=== PATIENT | female | born 1950 | race African-American/Black ===

== ENCOUNTER 2020-08-20 11:26 | Inpatient (IN) | payer MEDICARE, MEDICAID ==
[~2020-08-20] VITALS: Ht 160 cm; Wt 62.6 kg
[2020-08-20 11:59] LABS: BASOPHILS % 1.3 % (0.0-2.0); EOSINOPHILS % 3.2 % (0.0-5.0); HEMATOCRIT. 37.5 % (36.0-48.0); HEMOGLOBIN. 12.5 g/dL (12.0-16.0); LYMPHOCYTES % 8.3 % (20.0-50.0); MEAN CORPUSCULAR VOLUME 95.9 fL (81.0-99.0); MEAN PLATELET VOLUME 8.1 fl (7.4-10.4); MONOCYTES % 9.1 % (2.0-8.0); NEUTROPHILS % 78.1 % (40.0-76.0); PLATELET 200 x1000/uL (130-400); RED BLOOD CELL COUNT 3.91 mill/uL (4.2-5.4)
[2020-08-20 12:03] LABS: CHLORIDE 95 mEq/L (98-107)
[2020-08-20 12:06] LABS: PROTHROMBIN TIME 10.9 sec (9.6-11.0)
[2020-08-20] MEDS ORDERED: CEFTRIAXONE 1 G PREMIX 50 ML IV NR (15:00)
[2020-08-20] MEDS ORDERED: ACETAMINOPHEN 325MG TABLET PO PRN (15:15)
[2020-08-20] MEDS ORDERED: ONDANSETRON HCL 4MG/2ML INJ IV PRN (15:15)
[2020-08-20 17:07] VITALS: BP 146/65
[2020-08-20] MEDS ORDERED: MINO2.5T2 PO ×2 (18:00→23:39)
[2020-08-20] MEDS ORDERED: DOXA2TAB2 PO (18:00)
[2020-08-20] MEDS ORDERED: AMLO10TA80 PO ×2 (18:00→23:39)
[2020-08-20] MEDS ORDERED: SUCR500T PO (18:00)
[2020-08-20] MEDS ORDERED: ATOR20TA65 PO (18:00)
[2020-08-20] MEDS ORDERED: ATEN100T PO ×2 (18:00→23:39)
[2020-08-20 20:00] VITALS: BP 108/48
[2020-08-20 23:57] VITALS: BP 111/48
[2020-08-21 04:00] VITALS: BP 116/56
[2020-08-21 07:30] LABS: BASOPHILS % 1.3 % (0.0-2.0); EOSINOPHILS % 3.9 % (0.0-5.0); HEMATOCRIT. 34.6 % (36.0-48.0); HEMOGLOBIN. 11.2 g/dL (12.0-16.0); LYMPHOCYTES % 17.2 % (20.0-50.0); MEAN CORPUSCULAR VOLUME 98.9 fL (81.0-99.0); MEAN PLATELET VOLUME 8.2 fl (7.4-10.4); MONOCYTES % 13.6 % (2.0-8.0); PLATELET 177 x1000/uL (130-400); RED BLOOD CELL COUNT 3.49 mill/uL (4.2-5.4); RED CELL DISTRIBUTION WIDTH 15.1 % (11.6-14.6)
[2020-08-21 08:00] VITALS: BP 132/47
[2020-08-21 12:00] VITALS: BP 127/47
[2020-08-21] MEDS ORDERED: CEFTRIAXONE 1 G PREMIX 50 ML IV SCH (15:00)
[2020-08-21 16:00] VITALS: BP_SYST 141; BP_SYST 146; BP_DIAS 71; BP_DIAS 80
[2020-08-21] MEDS: CEFTRIAXONE 1,000 MG in DEXTROSE 5% WATER 50 ML IV SCH (16:43)
[2020-08-21 20:00] VITALS: BP_SYST 126; BP_SYST 140; BP_SYST 143; BP_DIAS 54; BP_DIAS 70; BP_DIAS 80
[2020-08-22] VITALS: BP 126/54
[2020-08-22 04:00] VITALS: BP 132/58
[2020-08-22 08:00] VITALS: BP_SYST 118; BP_SYST 133; BP_SYST 139; BP_DIAS 55; BP_DIAS 56; BP_DIAS 61
[2020-08-22 12:00] VITALS: BP_SYST 142; BP_SYST 143; BP_DIAS 73; BP_DIAS 75; BP_DIAS 82
[2020-08-22 16:00] VITALS: BP_SYST 104; BP_SYST 149; BP_SYST 163; BP_DIAS 75; BP_DIAS 76; BP_DIAS 86
[2020-08-22] MEDS: CEFTRIAXONE 1,000 MG in DEXTROSE 5% WATER 50 ML IV SCH (16:33)
[2020-08-22] MEDS ORDERED: HEPARIN SODIUM 1,000 UNIT/1ML VIAL IV NR (19:30)
[2020-08-22 20:00] VITALS: BP_SYST 115; BP_SYST 118; BP_DIAS 58; BP_DIAS 59
[2020-08-23] VITALS: BP_SYST 119; BP_SYST 122; BP_SYST 125; BP_DIAS 65; BP_DIAS 67; BP_DIAS 75
== END 2020-08-23 09:30 | disposition home or self-care (01) | DRG 70 ==
LOC: ER 11:26 → EDBEDREQ 13:30 → EDBEDREQTM 13:30 → 8WST 14:36 → EDBEDREQTM 14:39 → EDBEDREQ 14:39 → ENRESERV 15:11
PROVIDERS: ADMIT Internal Medicine; ATTEND Internal Medicine
PROC: 02HV33Z Insertion of Infusion Device into Superior Vena Cava, Percutaneous Approach (ICD-10-PCS; principal; 2020-08-20)
PROC: 5A1D70Z Performance of Urinary Filtration, Intermittent, Less than 6 Hours Per Day (ICD-10-PCS; 2020-08-22)
DX: G93.41 Metabolic encephalopathy (principal); N18.6 End stage renal disease; E87.1 Hypo-osmolality and hyponatremia; I50.32 Chronic diastolic (congestive) heart failure; I13.2 Hypertensive heart and chronic kidney disease with heart failure and with stage 5 chronic kidney disease, or end stage renal disease; G90.8 Other disorders of autonomic nervous system; E87.8 Other disorders of electrolyte and fluid balance, not elsewhere classified; E78.5 Hyperlipidemia, unspecified; I95.3 Hypotension of hemodialysis; Z99.2 Dependence on renal dialysis
CPT/HCPCS: 36415; 71045; 80048; 80053; 82962; 83605; 83880; 84145; 84484; 85025; 93005; 93306; 97162; 99285; J0696; J1644; J7060

== ENCOUNTER 2020-11-25 19:18 | Inpatient (IN) | payer MEDICARE, MEDICAID ==
[~2020-11-25] VITALS: Ht 152.4 cm; Wt 64.9 kg
[~2020-11-25 19:18] MED LIST: ATEN100T PO; ATOR20TA65 PO; DOXA2TAB2 PO; SUCR500T PO
[2020-11-25 21:04] LABS: HEMATOCRIT. 31.9 % (36.0-48.0); HEMOGLOBIN. 10.3 g/dL (12.0-16.0); MEAN CORPUSCULAR HEMOGLOBIN 30.3 pg (28.0-32.0); MEAN CORPUSCULAR VOLUME 93.7 fL (81.0-99.0); MEAN PLATELET VOLUME 8.3 fl (7.4-10.4); PLATELET 201 x1000/uL (130-400); RED CELL DISTRIBUTION WIDTH 15.4 % (11.6-14.6)
[2020-11-25 21:10] LABS: CHLORIDE 90 mEq/L (98-107)
[2020-11-25 21:25] LABS: PLATELET ESTIMATE NORMAL
[2020-11-25] MEDS ORDERED: ALBUTEROL 6.7GM HFA INHALER ORI ONE (21:30)
[2020-11-25] MEDS ORDERED: VANCOMYCIN 1 G PREMIX 200 ML IV ONE (21:30)
[2020-11-25] MEDS ORDERED: PIPERACILLIN/TAZ 3.375G PREMIX 50 ML IV ONE (21:30)
[2020-11-25] MEDS ORDERED: SODIUM POLYSTYRENE SULFONATE 15 G/60 ML BOT PO ONE (21:30)
[2020-11-25] MEDS ORDERED: SODIUM BICARBONATE 8.4% 1 MEQ/ML 50ML SYR IV ONE (21:30)
[2020-11-25] MEDS ORDERED: DEXTROSE 50% WATER 50ML SYRINGE IV ONE (21:45)
[2020-11-25] MEDS ORDERED: INSULIN REGULAR (HUMULIN R) 300UNITS/3ML VIAL IV ONE (21:45)
[2020-11-26] MEDS ORDERED: PIPERACILLIN/TAZOBACTAM 3.375 G in DEXT 5% WATER 100 ML IV SCH (07:45)
[2020-11-26] MEDS ORDERED: ONDANSETRON HCL 4MG/2ML INJ IV PRN (07:45)
[2020-11-26] MEDS ORDERED: PIPERACILLIN/TAZOBACTAM 2.25 G in DEXTROSE 5% WATER 50 ML IV SCH (12:00)
[2020-11-26] MEDS: ENOXAPARIN 30MG/0.3ML SYR SUBCUT SCH (12:42)
[2020-11-27] MEDS: ACETAMINOPHEN 325MG TABLET PO PRN ×3 (00:03→14:22)
[2020-11-27 02:00] VITALS: BP 115/57
[2020-11-27 04:00] VITALS: BP 125/55
[2020-11-27] MEDS: PIPERACILLIN/TAZOBACTAM 2.25 G in DEXTROSE 5% WATER 50 ML IV SCH (04:22)
[2020-11-27 08:00] VITALS: BP 134/42
[2020-11-27] MEDS: ENOXAPARIN 30MG/0.3ML SYR SUBCUT SCH (09:35)
[2020-11-27 12:00] VITALS: BP 140/68
[2020-11-27 16:00] VITALS: BP 97/51
[2020-11-27] MEDS ORDERED: DEXTROSE 50% WATER 50ML SYRINGE IV PRN (18:15)
[2020-11-27 20:00] VITALS: BP 120/74
[2020-11-27] MEDS: BLOOD SUGAR DIAGNOSTIC STRIP TEST SCH (21:00)
[2020-11-28] VITALS: BP 109/92
[2020-11-28] MEDS: PIPERACILLIN/TAZOBACTAM 2.25 G in DEXTROSE 5% WATER 50 ML IV SCH ×3 (00:31→22:33)
[2020-11-28] MEDS: ACETAMINOPHEN 325MG TABLET PO PRN ×3 (00:31→22:32)
[2020-11-28] MEDS: INSULIN LISPRO 100 UNITS/ML SUBCUT SCH ×5 (00:52→21:00)
[2020-11-28 04:00] VITALS: BP 97/46
[2020-11-28] MEDS: BLOOD SUGAR DIAGNOSTIC STRIP TEST SCH ×4 (06:42→21:00)
[2020-11-28 08:00] VITALS: BP 123/59
[2020-11-28] MEDS: ENOXAPARIN 30MG/0.3ML SYR SUBCUT SCH (08:32)
[2020-11-28 12:53] VITALS: BP 116/51
[2020-11-28 16:59] VITALS: BP 139/58
[2020-11-28 18:12] LABS: HEMATOCRIT. 28.3 % (36.0-48.0); HEMOGLOBIN. 9.6 g/dL (12.0-16.0); MEAN CORPUSCULAR HEMOGLOBIN 31.2 pg (28.0-32.0); MEAN CORPUSCULAR VOLUME 92.4 fL (81.0-99.0); MEAN PLATELET VOLUME 8.3 fl (7.4-10.4); PLATELET 183 x1000/uL (130-400); RED BLOOD CELL COUNT 3.06 mill/uL (4.2-5.4); RED CELL DISTRIBUTION WIDTH 14.7 % (11.6-14.6)
[2020-11-28 18:39] LABS: PLATELET ESTIMATE NORMAL
[2020-11-28 20:00] VITALS: BP 186/82
[2020-11-29] VITALS: BP 128/80
[2020-11-29 04:00] VITALS: BP 158/57
[2020-11-29] MEDS: ACETAMINOPHEN 325MG TABLET PO PRN (06:01)
[2020-11-29] MEDS: INSULIN LISPRO 100 UNITS/ML SUBCUT SCH ×4 (07:40→21:00)
[2020-11-29 08:00] VITALS: BP 119/62
[2020-11-29] MEDS: BLOOD SUGAR DIAGNOSTIC STRIP TEST SCH ×4 (08:08→21:36)
[2020-11-29] MEDS: ENOXAPARIN 30MG/0.3ML SYR SUBCUT SCH (10:10)
[2020-11-29] MEDS: PIPERACILLIN/TAZOBACTAM 2.25 G in DEXTROSE 5% WATER 50 ML IV SCH ×2 (10:10→21:00)
[2020-11-29 12:00] VITALS: BP 103/45
[2020-11-29 16:00] VITALS: BP 105/50
[2020-11-29 17:39] LABS: BASOPHILS % 0.7 % (0.0-2.0); EOSINOPHILS % 1.4 % (0.0-5.0); HEMOGLOBIN. 10.3 g/dL (12.0-16.0); LYMPHOCYTES % 7.5 % (20.0-50.0); MEAN CORPUSCULAR HEMOGLOBIN 30.9 pg (28.0-32.0); MEAN CORPUSCULAR VOLUME 96.2 fL (81.0-99.0); MEAN PLATELET VOLUME 8.6 fl (7.4-10.4); NEUTROPHILS % 82.4 % (40.0-76.0); PLATELET 147 x1000/uL (130-400); RED BLOOD CELL COUNT 3.33 mill/uL (4.2-5.4); RED CELL DISTRIBUTION WIDTH 15.4 % (11.6-14.6)
[2020-11-29 20:00] VITALS: BP 134/65
[2020-11-30] VITALS: BP 139/80
[2020-11-30 04:00] VITALS: BP 138/66
[2020-11-30] MEDS: BLOOD SUGAR DIAGNOSTIC STRIP TEST SCH ×4 (06:34→21:00)
[2020-11-30] MEDS: INSULIN LISPRO 100 UNITS/ML SUBCUT SCH ×4 (06:35→21:00)
[2020-11-30 08:00] VITALS: BP 135/65
[2020-11-30] MEDS: ENOXAPARIN 30MG/0.3ML SYR SUBCUT SCH (09:53)
[2020-11-30] MEDS: PIPERACILLIN/TAZOBACTAM 2.25 G in DEXTROSE 5% WATER 50 ML IV SCH ×2 (10:04→22:23)
[2020-11-30] MEDS ORDERED: POTASSIUM CHLORIDE 20MEQ TABLET SR PO SCH (13:00)
[2020-11-30 20:00] VITALS: BP 136/89
[2020-12-01] VITALS: BP 128/60
[2020-12-01 04:00] VITALS: BP 139/62
[2020-12-01 08:00] VITALS: BP 115/56
[2020-12-01] MEDS: ENOXAPARIN 30MG/0.3ML SYR SUBCUT SCH (09:38)
[2020-12-01] MEDS: PIPERACILLIN/TAZOBACTAM 2.25 G in DEXTROSE 5% WATER 50 ML IV SCH (09:38)
[2020-12-01] MEDS: INSULIN LISPRO 100 UNITS/ML SUBCUT SCH ×3 (11:53→21:00)
[2020-12-01] MEDS: BLOOD SUGAR DIAGNOSTIC STRIP TEST SCH ×3 (11:53→21:00)
[2020-12-01 12:00] VITALS: BP 140/92
[2020-12-01 16:00] VITALS: BP 138/60
[2020-12-01 20:00] VITALS: BP 152/63
[2020-12-02] MEDS: INSULIN LISPRO 100 UNITS/ML SUBCUT SCH ×4 (07:50→21:00)
[2020-12-02] MEDS: BLOOD SUGAR DIAGNOSTIC STRIP TEST SCH ×4 (07:51→21:16)
[2020-12-02 08:56] VITALS: BP 148/60
[2020-12-02] MEDS: ENOXAPARIN 30MG/0.3ML SYR SUBCUT SCH (09:45)
[2020-12-02] MEDS: ACETAMINOPHEN 325MG TABLET PO PRN (12:04)
[2020-12-02 20:00] VITALS: BP 141/66
[2020-12-03] MEDS: BLOOD SUGAR DIAGNOSTIC STRIP TEST SCH ×2 (06:37→12:09)
[2020-12-03] MEDS: INSULIN LISPRO 100 UNITS/ML SUBCUT SCH ×2 (07:50→12:09)
[2020-12-03 08:00] VITALS: BP 171/71
[2020-12-03] MEDS: ENOXAPARIN 30MG/0.3ML SYR SUBCUT SCH (09:48)
[2020-12-03 14:36] VITALS: BP 151/71
== END 2020-12-03 16:00 | disposition home health service (06) | DRG 871 ==
LOC: ER 19:18 → ENRESERV 11-26 21:24 → 8WST 11-27 01:56 → 6WST 12-01 23:54
PROVIDERS: ADMIT Internal Medicine; ATTEND Internal Medicine
PROC: 5A1D70Z Performance of Urinary Filtration, Intermittent, Less than 6 Hours Per Day (ICD-10-PCS; principal; 2020-11-26)
DX: A41.89 Other specified sepsis (principal); U07.1 COVID-19; J96.01 Acute respiratory failure with hypoxia; N18.6 End stage renal disease; J12.82 Pneumonia due to coronavirus disease 2019; G92 Toxic encephalopathy; E87.2 Acidosis; E87.1 Hypo-osmolality and hyponatremia; E44.0 Moderate protein-calorie malnutrition; I12.0 Hypertensive chronic kidney disease with stage 5 chronic kidney disease or end stage renal disease; E87.8 Other disorders of electrolyte and fluid balance, not elsewhere classified; E87.5 Hyperkalemia; E78.5 Hyperlipidemia, unspecified; D64.9 Anemia, unspecified; R77.8 Other specified abnormalities of plasma proteins; E11.22 Type 2 diabetes mellitus with diabetic chronic kidney disease; Z68.27 Body mass index [BMI] 27.0-27.9, adult; Z99.2 Dependence on renal dialysis; Z79.899 Other long term (current) drug therapy
CPT/HCPCS: 36415; 71045; 80048; 80053; 82140; 82728; 82962; 83605; 83615; 83880; 84145; 84484; 85025; 85379; 86140; 87635; 93005; 99285; J1650; J1815; J2543; J3370; J3490; J7060

== ENCOUNTER 2021-06-24 12:02 | Emergency (ER) | payer MEDICARE, MEDICAID ==
[~2021-06-24] VITALS: Ht 160 cm; Wt 63.0 kg
[2021-06-24 13:04] LABS: HEMATOCRIT. 34.7 % (36.0-48.0); HEMOGLOBIN. 11.6 g/dL (12.0-16.0); MEAN CORPUSCULAR HEMOGLOBIN 32.3 pg (28.0-32.0); MEAN CORPUSCULAR VOLUME 97.1 fL (81.0-99.0); MEAN PLATELET VOLUME 7.6 fl (7.4-10.4); PLATELET 269 x1000/uL (130-400); RED BLOOD CELL COUNT 3.58 mill/uL (4.2-5.4); RED CELL DISTRIBUTION WIDTH 16.4 % (11.6-14.6)
[2021-06-24 13:18] LABS: CHLORIDE 99 mEq/L (98-107)
[2021-06-24 14:01] VITALS: BP 164/74
[2021-06-24 14:19] LABS: PLATELET ESTIMATE NORMAL
== END 2021-06-24 14:14 | disposition home or self-care (01) ==
LOC: ER 12:02
DX: R55 Syncope and collapse (principal); I12.0 Hypertensive chronic kidney disease with stage 5 chronic kidney disease or end stage renal disease; N18.6 End stage renal disease; Z99.2 Dependence on renal dialysis; Z79.899 Other long term (current) drug therapy
CPT/HCPCS: 36415; 71045; 80053; 85025; 99283; 99284

== ENCOUNTER 2021-09-21 12:10 | Emergency (ER) | payer MEDICARE, MEDICAID ==
[~2021-09-21] VITALS: Ht 167.6 cm; Wt 73.0 kg
[2021-09-21 14:02] LABS: BASOPHILS % 1.1 % (0.0-2.0); EOSINOPHILS % 2.2 % (0.0-5.0); HEMATOCRIT. 37.1 % (36.0-48.0); HEMOGLOBIN. 12.3 g/dL (12.0-16.0); LYMPHOCYTES % 7.7 % (20.0-50.0); MEAN CORPUSCULAR HEMOGLOBIN 29.9 pg (28.0-32.0); MEAN CORPUSCULAR VOLUME 90.3 fL (81.0-99.0); MEAN PLATELET VOLUME 7.7 fl (7.4-10.4); MONOCYTES % 6.8 % (2.0-8.0); NEUTROPHILS % 82.2 % (40.0-76.0); PLATELET 291 x1000/uL (130-400); RED BLOOD CELL COUNT 4.11 mill/uL (4.2-5.4); RED CELL DISTRIBUTION WIDTH 15.8 % (11.6-14.6)
[2021-09-21 14:06] LABS: CHLORIDE 96 mEq/L (98-107)
[2021-09-21 14:52] VITALS: BP 127/75
== END 2021-09-21 14:55 | disposition home or self-care (01) ==
LOC: ER 12:10
DX: R55 Syncope and collapse (principal); I95.3 Hypotension of hemodialysis; E87.1 Hypo-osmolality and hyponatremia; E87.8 Other disorders of electrolyte and fluid balance, not elsewhere classified; I12.0 Hypertensive chronic kidney disease with stage 5 chronic kidney disease or end stage renal disease; N18.6 End stage renal disease; E11.22 Type 2 diabetes mellitus with diabetic chronic kidney disease; Z99.2 Dependence on renal dialysis; Z79.899 Other long term (current) drug therapy
CPT/HCPCS: 36415; 80053; 84484; 85025; 93005; 99283

== ENCOUNTER 2022-03-23 07:19 | Inpatient (IN) | payer MEDICARE, MEDICAID ==
[~2022-03-23] VITALS: Ht 160 cm; Wt 67.1 kg
[~2022-03-23 07:19] MED LIST changes: +AMLO10TA80 MT; +MINO2.5T2 MT; +PANT40TA51 MT; +SUCR1TAB30 MT
[2022-03-23] MEDS ORDERED: ASPIRIN 81MG TABLET PO ONE (07:30)
[2022-03-23 08:16] LABS: HEMATOCRIT. 27.3 % (36.0-48.0); HEMOGLOBIN. 8.8 g/dL (12.0-16.0); MEAN CORPUSCULAR VOLUME 93.4 fL (81.0-99.0); MEAN PLATELET VOLUME 7.8 fl (7.4-10.4); PLATELET 333 x1000/uL (130-400); RED BLOOD CELL COUNT 2.92 mill/uL (4.2-5.4); RED CELL DISTRIBUTION WIDTH 16.8 % (11.6-14.6)
[2022-03-23 08:28] LABS: CHLORIDE 102 mEq/L (98-107)
[2022-03-23] MEDS ORDERED: ATENOLOL 100 MG TABLET PO ONE (08:30)
[2022-03-23] MEDS ORDERED: AMLODIPINE 10MG TABLET PO ONE (08:30)
[2022-03-23 08:39] LABS: PLATELET ESTIMATE NORMAL
[2022-03-23] MEDS ORDERED: ATENOLOL 50 MG TABLET PO ONE (08:45)
[2022-03-23] MEDS ORDERED: ASPIRIN 81MG TABLET PO SCH (08:45)
[2022-03-23] MEDS ORDERED: CLINDAMYCIN 600 MG in DEXTROSE 5% WATER 50 ML IV ONE (08:45)
[2022-03-23] MEDS ORDERED: CEFTRIAXONE 1 G PREMIX 50 ML IV ONE (08:45)
[2022-03-23] MEDS: CLINDAMYCIN 600 MG PREMIX 50 ML IV NR ×2 (10:37→11:01)
[2022-03-23] MEDS ORDERED: CEFTRIAXONE 1 G PREMIX 50 ML IV SCH (11:00)
[2022-03-23] MEDS ORDERED: ONDANSETRON HCL 4MG/2ML INJ IV PRN (11:00)
[2022-03-23] MEDS ORDERED: IPRATROPIUM/ALBUTEROL 0.5-3(2.5)MG/3ML NEB HHN PRN (11:00)
[2022-03-23 11:47] VITALS: BP 165/71
[2022-03-23] MEDS ORDERED: AZITHROMYCIN 500 MG in DEXT 5% WATER 250 ML IV SCH (12:45)
[2022-03-23] MEDS: LOSARTAN POTASSIUM 100 MG TABLET PO SCH (13:41)
[2022-03-23 13:44] LABS: HEPATITIS B SURFACE ANTIGEN NEGATIVE
[2022-03-23 16:00] VITALS: BP 150/69
[2022-03-23 20:00] VITALS: BP 186/92
[2022-03-23] MEDS: AZITHROMYCIN 500 MG in DEXT 5% WATER 250 ML IV SCH (21:36)
[2022-03-23] MEDS: CLONIDINE 0.1MG TABLET PO PRN (21:37)
[2022-03-23] MEDS: EPOETIN ALFA-EPBX 10,000 UNIT/ML VIAL SUBCUT SCH (21:37)
[2022-03-24] VITALS: BP 123/78
[2022-03-24 04:00] VITALS: BP 149/62
[2022-03-24 08:00] VITALS: BP 162/66
[2022-03-24] MEDS: LOSARTAN POTASSIUM 100 MG TABLET PO SCH (09:12)
[2022-03-24] MEDS: CEFTRIAXONE 1,000 MG in DEXTROSE 5% WATER 50 ML IV SCH (09:45)
[2022-03-24 12:00] VITALS: BP 164/79
[2022-03-24 16:00] VITALS: BP 148/79
[2022-03-24 18:42] LABS: BASOPHILS % 1.1 % (0.0-2.0); EOSINOPHILS % 3.7 % (0.0-5.0); HEMATOCRIT. 26.9 % (36.0-48.0); HEMOGLOBIN. 8.7 g/dL (12.0-16.0); LYMPHOCYTES % 11.9 % (20.0-50.0); MEAN CORPUSCULAR HEMOGLOBIN 30.3 pg (28.0-32.0); MEAN CORPUSCULAR VOLUME 93.9 fL (81.0-99.0); MEAN PLATELET VOLUME 8.1 fl (7.4-10.4); MONOCYTES % 8.8 % (2.0-8.0); NEUTROPHILS % 74.5 % (40.0-76.0); PLATELET 285 x1000/uL (130-400); RED BLOOD CELL COUNT 2.87 mill/uL (4.2-5.4); RED CELL DISTRIBUTION WIDTH 16.9 % (11.6-14.6)
[2022-03-24 20:00] VITALS: BP 146/49
[2022-03-24] MEDS: IPRATROPIUM/ALBUTEROL 0.5-3(2.5)MG/3ML NEB HHN SCH (21:39)
[2022-03-24] MEDS: AZITHROMYCIN 500 MG in DEXT 5% WATER 250 ML IV SCH (23:00)
[2022-03-25] VITALS: BP 162/71
[2022-03-25] MEDS: CLONIDINE 0.1MG TABLET PO PRN ×2 (00:38→20:19)
[2022-03-25] MEDS: IPRATROPIUM/ALBUTEROL 0.5-3(2.5)MG/3ML NEB HHN SCH ×4 (01:28→18:00)
[2022-03-25 04:00] VITALS: BP 129/64
[2022-03-25 08:00] VITALS: BP 136/64
[2022-03-25] MEDS: CEFTRIAXONE 1,000 MG in DEXTROSE 5% WATER 50 ML IV SCH (08:06)
[2022-03-25] MEDS: LOSARTAN POTASSIUM 100 MG TABLET PO SCH (08:18)
[2022-03-25] MEDS ORDERED: LEVO250T58 MT (11:23)
[2022-03-25 12:00] VITALS: BP 155/66
[2022-03-25 16:00] VITALS: BP 153/62
[2022-03-25 20:00] VITALS: BP 191/72
[2022-03-25] MEDS ORDERED: AZITHROMYCIN 500 MG TABLET PO SCH (21:00)
[2022-03-25] MEDS: EPOETIN ALFA-EPBX 10,000 UNIT/ML VIAL SUBCUT SCH (21:44)
[2022-03-26] VITALS: BP 137/53
[2022-03-26 04:00] VITALS: BP 162/68
[2022-03-26] MEDS: CLONIDINE 0.1MG TABLET PO PRN (05:44)
[2022-03-26 07:51] VITALS: BP 143/71
[2022-03-26] MEDS: IPRATROPIUM/ALBUTEROL 0.5-3(2.5)MG/3ML NEB HHN SCH ×2 (08:19)
[2022-03-26] MEDS: LOSARTAN POTASSIUM 100 MG TABLET PO SCH (08:33)
[2022-03-26] MEDS: CEFTRIAXONE 1,000 MG in DEXTROSE 5% WATER 50 ML IV SCH (08:34)
[2022-03-26 11:05] VITALS: BP 115/63
[2022-03-26 12:00] VITALS: BP 150/63
== END 2022-03-26 14:35 | disposition home or self-care (01) | DRG 871 ==
LOC: ER 07:19 → EDBEDREQTM 09:02 → EDBEDREQ 09:02 → 7EST 10:04 → EDBEDREQTM 10:08 → EDBEDREQ 10:08 → ENRESERV 10:41
PROVIDERS: ADMIT Internal Medicine; ATTEND Internal Medicine
PROC: 5A1D70Z Performance of Urinary Filtration, Intermittent, Less than 6 Hours Per Day (ICD-10-PCS; 2022-03-23)
PROC: 5A1D70Z Performance of Urinary Filtration, Intermittent, Less than 6 Hours Per Day (ICD-10-PCS; 2022-03-24)
PROC: 5A1D70Z Performance of Urinary Filtration, Intermittent, Less than 6 Hours Per Day (ICD-10-PCS; principal; 2022-03-26)
DX: A41.9 Sepsis, unspecified organism (principal); J18.9 Pneumonia, unspecified organism; J96.00 Acute respiratory failure, unspecified whether with hypoxia or hypercapnia; N18.6 End stage renal disease; I50.33 Acute on chronic diastolic (congestive) heart failure; I13.2 Hypertensive heart and chronic kidney disease with heart failure and with stage 5 chronic kidney disease, or end stage renal disease; E11.22 Type 2 diabetes mellitus with diabetic chronic kidney disease; E78.5 Hyperlipidemia, unspecified; D63.8 Anemia in other chronic diseases classified elsewhere; R79.89 Other specified abnormal findings of blood chemistry; Z20.822 Contact with and (suspected) exposure to COVID-19; Z79.899 Other long term (current) drug therapy; Z99.2 Dependence on renal dialysis; Z86.16 Personal history of COVID-19
CPT/HCPCS: 36415; 71045; 80048; 80053; 83880; 84145; 84484; 85025; 86705; 86709; 86803; 87340; 87426; 93005; 94640; 99285; J0456; J0696; J0885; J3490; J7060

== ENCOUNTER 2022-10-29 17:59 | Inpatient (IN) | payer MEDICARE, MEDICAID ==
[~2022-10-29] VITALS: Ht 157.5 cm; Wt 61.2 kg
[~2022-10-29 17:59] MED LIST changes: +LEVO250T74 MT; -SUCR1TAB30 MT; -SUCR500T PO
[2022-10-29 20:33] LABS: HEMATOCRIT. 29.4 % (36.0-48.0); HEMOGLOBIN. 10.1 g/dL (12.0-16.0); MEAN CORPUSCULAR VOLUME 90.1 fL (81.0-99.0); PLATELET 267 x1000/uL (130-400); RED BLOOD CELL COUNT 3.26 mill/uL (4.2-5.4); RED CELL DISTRIBUTION WIDTH 14.6 % (11.6-14.6)
[2022-10-29 21:27] LABS: CHLORIDE 95 mEq/L (98-107)
[2022-10-29 23:05] LABS: PLATELET ESTIMATE NORMAL
[2022-10-30 03:23] VITALS: BP 158/65
[2022-10-30] MEDS: PANTOPRAZOLE 40MG DR TABLET PO SCH (05:57)
[2022-10-30 08:00] VITALS: BP 145/60
[2022-10-30] MEDS ORDERED: ATENOLOL 100 MG TABLET PO SCH (09:00)
[2022-10-30] MEDS: MINOXIDIL 2.5MG TABLET PO SCH ×2 (09:27→21:42)
[2022-10-30] MEDS: AMLODIPINE 10MG TABLET PO SCH (09:27)
[2022-10-30] MEDS ORDERED: CEFTRIAXONE 1 G PREMIX 50 ML IV SCH (10:30)
[2022-10-30 12:00] VITALS: BP 156/64
[2022-10-30] MEDS: AZITHROMYCIN 500 MG TABLET PO SCH (13:14)
[2022-10-30] MEDS: ATENOLOL 50 MG TABLET PO SCH (13:17)
[2022-10-30] MEDS: CEFTRIAXONE 1,000 MG in DEXTROSE 5% WATER 50 ML IV SCH (13:17)
[2022-10-30 16:00] VITALS: BP 131/56
[2022-10-30 18:41] LABS: HEPATITIS B SURFACE ANTIGEN NEGATIVE
[2022-10-30 20:00] VITALS: BP 124/55
[2022-10-30] MEDS: ATORVASTATIN CALCIUM 20MG TABLET PO SCH (21:43)
[2022-10-30] MEDS: DOXAZOSIN MESYLATE 2MG TABLET PO SCH (21:44)
[2022-10-31] VITALS (13 sets, daily range): BP systolic 105–134; BP diastolic 45–64
[2022-10-31] MEDS: PANTOPRAZOLE 40MG DR TABLET PO SCH (06:12)
[2022-10-31 06:29] LABS: BASOPHILS % 1.4 % (0.0-2.0); HEMATOCRIT. 22.6 % (36.0-48.0); HEMOGLOBIN. 7.7 g/dL (12.0-16.0); MEAN CORPUSCULAR HEMOGLOBIN 30.3 pg (28.0-32.0); MEAN PLATELET VOLUME 8.4 fl (7.4-10.4); MONOCYTES % 14.1 % (2.0-8.0); NEUTROPHILS % 70.5 % (40.0-76.0); PLATELET 176 x1000/uL (130-400); RED BLOOD CELL COUNT 2.55 mill/uL (4.2-5.4)
[2022-10-31] MEDS: MINOXIDIL 2.5MG TABLET PO SCH ×2 (09:00→21:00)
[2022-10-31] MEDS: ATENOLOL 50 MG TABLET PO SCH (09:00)
[2022-10-31] MEDS: AMLODIPINE 10MG TABLET PO SCH (09:00)
[2022-10-31] MEDS: AZITHROMYCIN 500 MG TABLET PO SCH (10:00)
[2022-10-31] MEDS: CEFTRIAXONE 1,000 MG in DEXTROSE 5% WATER 50 ML IV SCH (12:27)
[2022-10-31] MEDS: ATORVASTATIN CALCIUM 20MG TABLET PO SCH (20:58)
[2022-10-31] MEDS ORDERED: EPOETIN ALFA-EPBX 4,000 UNIT/ML VIAL SUBCUT SCH (21:00)
[2022-10-31] MEDS: DOXAZOSIN MESYLATE 2MG TABLET PO SCH (21:00)
[2022-10-31] MEDS: ACETAMINOPHEN 325MG TABLET PO PRN (22:03)
[2022-10-31] MEDS ORDERED: DOCUSATE SODIUM 250MG CAPSULE PO PRN (22:15)
[2022-10-31] MEDS: OXYMETAZOLINE HCL NASAL SPRAY 15ML BOTHNSTRLS SCH (22:42)
[2022-11-01] VITALS (13 sets, daily range): BP systolic 107–154; BP diastolic 45–80
[2022-11-01 06:36] LABS: HEMATOCRIT. 23.2 % (36.0-48.0); HEMOGLOBIN. 7.9 g/dL (12.0-16.0); MEAN CORPUSCULAR HEMOGLOBIN 30.5 pg (28.0-32.0); MEAN CORPUSCULAR VOLUME 89.2 fL (81.0-99.0); MEAN PLATELET VOLUME 8.6 fl (7.4-10.4); PLATELET 195 x1000/uL (130-400); RED CELL DISTRIBUTION WIDTH 14.1 % (11.6-14.6)
[2022-11-01] MEDS: PANTOPRAZOLE 40MG DR TABLET PO SCH (06:57)
[2022-11-01] MEDS: MINOXIDIL 2.5MG TABLET PO SCH ×2 (08:31→21:00)
[2022-11-01] MEDS: AMLODIPINE 10MG TABLET PO SCH (08:32)
[2022-11-01] MEDS: ATENOLOL 50 MG TABLET PO SCH (08:32)
[2022-11-01] MEDS: AZITHROMYCIN 500 MG TABLET PO SCH (09:18)
[2022-11-01] MEDS: OXYMETAZOLINE HCL NASAL SPRAY 15ML BOTHNSTRLS SCH ×3 (09:18→21:29)
[2022-11-01] MEDS: ACETAMINOPHEN 325MG TABLET PO PRN (10:38)
[2022-11-01] MEDS ORDERED: LEVO250T74 MT (12:40)
[2022-11-01] MEDS: CEFTRIAXONE 1,000 MG in DEXTROSE 5% WATER 50 ML IV SCH (12:55)
[2022-11-01 14:33] LABS: PLATELET ESTIMATE NORMAL
[2022-11-01] MEDS: DOXAZOSIN MESYLATE 2MG TABLET PO SCH (21:00)
[2022-11-01] MEDS ORDERED: EPOETIN ALFA-EPBX 4,000 UNIT/ML VIAL SUBCUT SCH (21:00)
[2022-11-01] MEDS: ATORVASTATIN CALCIUM 20MG TABLET PO SCH (21:29)
[2022-11-02] VITALS: BP 120/48
[2022-11-02 04:00] VITALS: BP 131/48
[2022-11-02] MEDS: ACETAMINOPHEN 325MG TABLET PO PRN (04:09)
[2022-11-02] MEDS: PANTOPRAZOLE 40MG DR TABLET PO SCH (05:45)
[2022-11-02 08:00] VITALS: BP 139/60
[2022-11-02] MEDS: ATENOLOL 50 MG TABLET PO SCH (09:00)
[2022-11-02] MEDS: AMLODIPINE 10MG TABLET PO SCH (09:15)
[2022-11-02] MEDS: AZITHROMYCIN 500 MG TABLET PO SCH (09:15)
[2022-11-02] MEDS: OXYMETAZOLINE HCL NASAL SPRAY 15ML BOTHNSTRLS SCH (09:15)
[2022-11-02] MEDS: MINOXIDIL 2.5MG TABLET PO SCH (09:15)
[2022-11-02 11:47] VITALS: BP 112/51
[2022-11-02 11:53] VITALS: BP 112/51
[2022-11-02] MEDS: CEFTRIAXONE 1,000 MG in DEXTROSE 5% WATER 50 ML IV SCH (11:54)
== END 2022-11-02 13:15 | disposition home or self-care (01) | DRG 871 ==
LOC: ER 17:59 → MICUSO 23:21 → EDBEDREQ 23:24 → EDBEDREQTM 23:24 → 7EST 10-30 04:16
PROVIDERS: ADMIT Internal Medicine; ATTEND Internal Medicine
PROC: 5A1D70Z Performance of Urinary Filtration, Intermittent, Less than 6 Hours Per Day (ICD-10-PCS; principal; 2022-10-31)
PROC: 5A1D70Z Performance of Urinary Filtration, Intermittent, Less than 6 Hours Per Day (ICD-10-PCS; 2022-11-01)
DX: A41.9 Sepsis, unspecified organism (principal); I50.33 Acute on chronic diastolic (congestive) heart failure; N18.6 End stage renal disease; J18.9 Pneumonia, unspecified organism; I13.2 Hypertensive heart and chronic kidney disease with heart failure and with stage 5 chronic kidney disease, or end stage renal disease; E87.1 Hypo-osmolality and hyponatremia; E11.22 Type 2 diabetes mellitus with diabetic chronic kidney disease; Z99.2 Dependence on renal dialysis; Z20.822 Contact with and (suspected) exposure to COVID-19; D63.8 Anemia in other chronic diseases classified elsewhere; E78.5 Hyperlipidemia, unspecified
CPT/HCPCS: 36415; 71045; 80048; 80053; 82962; 83880; 85025; 86705; 86709; 86803; 87340; 87426; 87804; 90935; 93005; 99285; C9803; J0696; J0885; J7060

== ENCOUNTER 2024-08-29 08:37 | Emergency (ER) | payer BC, MEDICAID ==
[~2024-08-29] VITALS: Ht 160 cm; Wt 59.0 kg
[2024-08-29 08:38] VITALS: O2SAT 99
[2024-08-29 09:49] LABS: EOSINOPHILS % 1.2 % (0.0-5.0); HEMATOCRIT. 39.7 % (36.0-48.0); LYMPHOCYTES % 9.2 % (20.0-50.0); MEAN CORPUSCULAR HEMOGLOBIN 29.7 pg (28.0-32.0); MEAN CORPUSCULAR HGB CONC 32.8 g/dL (31.0-37.0); MEAN CORPUSCULAR VOLUME 90.6 fL (81.0-99.0); MEAN PLATELET VOLUME 7.8 fl (7.4-10.4); MONOCYTES % 10.3 % (2.0-8.0); NEUTROPHILS % 77.3 % (40.0-76.0); PLATELET 270 x1000/uL (130-400); RED BLOOD CELL COUNT 4.38 mill/uL (4.2-5.4); WHITE BLOOD COUNT 6.1 x1000/uL (4.5-11.0)
[2024-08-29 09:54] LABS: CHLORIDE 96 mEq/L (98-107); SODIUM 137 mEq/L (136-145)
[2024-08-29 09:55] LABS: CARBON DIOXIDE 35 mEq/L (21-32)
[2024-08-29 09:56] LABS: CALCIUM 9.6 mg/dL (8.7-10.4)
[2024-08-29 10:00] LABS: CREATININE 4.8 mg/dL (0.6-1.0); GLUCOSE 84 mg/dL (70-105)
[2024-08-29 10:01] LABS: UREA NITROGEN BLOOD 20 mg/dL (9-23)
[2024-08-29 10:02] LABS: TROPONIN I HIGH SENSITIVITY 7 ng/L (3.0-34)
[2024-08-29 13:06] VITALS: BP 141/65; PULSE 71; RESP 18; TEMP 36.83628; O2SAT 100
== END 2024-08-29 13:10 | disposition home or self-care (01) ==
LOC: ER 08:37
DX: N18.6 End stage renal disease (principal); R55 Syncope and collapse; I12.0 Hypertensive chronic kidney disease with stage 5 chronic kidney disease or end stage renal disease; E11.22 Type 2 diabetes mellitus with diabetic chronic kidney disease; Z79.899 Other long term (current) drug therapy; Z99.2 Dependence on renal dialysis; Z98.890 Other specified postprocedural states
CPT/HCPCS: 36415; 71045; 80048; 84484; 85025; 93005; 99285

== ENCOUNTER 2025-04-17 15:13 | Inpatient (IN) | payer BC, MEDICAID ==
[~2025-04-17] VITALS: Ht 157.5 cm; Wt 68.0 kg
[~2025-04-17 15:13] MED LIST changes: -LEVO250T74 MT
[2025-04-17 15:24] VITALS: O2SAT 99
[2025-04-17 18:01] LABS: BASOPHILS % 0.8 % (0.0-2.0); EOSINOPHILS % 0.3 % (0.0-5.0); HEMATOCRIT. 31.5 % (36.0-48.0); HEMOGLOBIN. 10.2 g/dL (12.0-16.0); LYMPHOCYTES % 8.5 % (20.0-50.0); MEAN CORPUSCULAR HEMOGLOBIN 29.2 pg (28.0-32.0); MEAN CORPUSCULAR HGB CONC 32.5 g/dL (31.0-37.0); MEAN PLATELET VOLUME 8.4 fl (7.4-10.4); MONOCYTES % 10.5 % (2.0-8.0); NEUTROPHILS % 79.9 % (40.0-76.0); PLATELET 243 x1000/uL (130-400); RED CELL DISTRIBUTION WIDTH 16.4 % (11.6-14.6); WHITE BLOOD COUNT 8.7 x1000/uL (4.5-11.0)
[2025-04-17 18:08] LABS: POTASSIUM 4.7 mEq/L (3.5-5.1)
[2025-04-17 18:09] LABS: CALCIUM 9.7 mg/dL (8.7-10.4)
[2025-04-17 18:10] LABS: INR 1.1; PARTIAL THROMBOPLASTIN TIME 28.5 sec (23.4-31.0); PROTHROMBIN TIME 11.8 sec (9.6-11.0)
[2025-04-17 18:18] LABS: CREATININE 7.6 mg/dL (0.6-1.0)
[2025-04-17 21:00] VITALS: BP 162/73; PULSE 67; RESP 19; TEMP 36.6; O2SAT 100
[2025-04-17] MEDS ORDERED: DEXTROSE 50% WATER 50ML SYRINGE IV PRN (23:00)
[2025-04-17 23:54] LABS: BASOPHILS % 1.1 % (0.0-2.0); EOSINOPHILS % 1.1 % (0.0-5.0); HEMATOCRIT. 29.1 % (36.0-48.0); HEMOGLOBIN. 9.7 g/dL (12.0-16.0); MEAN CORPUSCULAR HEMOGLOBIN 29.8 pg (28.0-32.0); MEAN CORPUSCULAR HGB CONC 33.2 g/dL (31.0-37.0); MEAN PLATELET VOLUME 8.1 fl (7.4-10.4); MONOCYTES % 13.2 % (2.0-8.0); NEUTROPHILS % 75.6 % (40.0-76.0); PLATELET 223 x1000/uL (130-400); RED BLOOD CELL COUNT 3.23 mill/uL (4.2-5.4); RED CELL DISTRIBUTION WIDTH 16.4 % (11.6-14.6)
[2025-04-17 23:55] LABS: POTASSIUM 4.7 mEq/L (3.5-5.1)
[2025-04-18] VITALS (13 sets, daily range): BP systolic 79–161; BP diastolic 49–72; PULSE 65–76; RESP 14–20; TEMP 36.6696–36.9; O2SAT 97–100
[2025-04-18 00:12] LABS: CREATININE 8.3 mg/dL (0.6-1.0)
[2025-04-18] MEDS: BLOOD SUGAR DIAGNOSTIC STRIP TEST SCH (06:45)
[2025-04-18] MEDS: INSULIN LISPRO 100 UNITS/ML SUBCUT SCH (07:09)
[2025-04-18 10:07] LABS: HEPATITIS B SURFACE ANTIGEN NEGATIVE (Negative)
[2025-04-18] MEDS: SEVELAMER CARBONATE 800 MG TABLET PO SCH (10:29)
[2025-04-18] MEDS: FOLIC ACID/VITAMIN B COMP W-C TABLET PO SCH (10:29)
[2025-04-18] MEDS: AMLODIPINE 10MG TABLET PO SCH (10:29)
[2025-04-18] MEDS: MINOXIDIL 2.5MG TABLET PO SCH (10:39)
[2025-04-18] MEDS: ATENOLOL 50 MG TABLET PO SCH (10:39)
[2025-04-18 11:51] LABS: HEPATITIS C AB NON REACTIVE (Neg) (Negative)
[2025-04-18 12:03] LABS: HEPATITIS B SURFACE ANTIGEN NEGATIVE (Negative)
[2025-04-18 12:24] LABS: HEPATITIS A AB IGM NEGATIVE (Negative); HEPATITIS B CORE AB IGM NEGATIVE (Negative)
[2025-04-18 12:25] LABS: HEPATITIS C AB NON REACTIVE (Neg) (Negative)
[2025-04-18] MEDS: PANTOPRAZOLE 40MG DR TABLET PO SCH (14:49)
[2025-04-18] MEDS: ATORVASTATIN CALCIUM 20MG TABLET PO SCH (20:46)
[2025-04-18] MEDS: EPOETIN ALFA 4000UNITS/ML VIAL SUBCUT SCH (22:20)
[2025-04-19] VITALS (11 sets, daily range): BP systolic 96–120; BP diastolic 44–58; PULSE 62–77; RESP 16–20; TEMP 36.6–36.7; O2SAT 95–100
[2025-04-19 06:31] LABS: HEMOGLOBIN 9.7 g/dL (12.0-16.0); MEAN CORPUSCULAR HEMOGLOBIN 29.6 pg (28.0-32.0); MEAN CORPUSCULAR HGB CONC 33.3 g/dL (31.0-37.0); MEAN CORPUSCULAR VOLUME 88.9 fL (81.0-99.0); PLATELET 248 x1000/uL (130-400); RED BLOOD CELL COUNT 3.26 mill/uL (4.2-5.4); RED CELL DISTRIBUTION WIDTH 15.7 % (11.6-14.6); WHITE BLOOD COUNT 9.3 x1000/uL (4.5-11.0)
[2025-04-19 06:44] LABS: POTASSIUM 4.3 mEq/L (3.5-5.1)
[2025-04-19 06:46] LABS: CALCIUM 9.4 mg/dL (8.7-10.4)
[2025-04-19 07:06] LABS: CREATININE 7.2 mg/dL (0.6-1.0)
[2025-04-19] MEDS ORDERED: BACITRACIN 14GM TUBE TOP ONE (08:51)
[2025-04-19] MEDS ORDERED: POLYMYXIN B SULFATE 500000 UNITS/VIAL ONE (08:51)
[2025-04-19] MEDS ORDERED: LIDOCAINE HCL 1% 10 MG/ML 10ML VIAL ONE (08:52)
[2025-04-19] MEDS ORDERED: HEPARIN SODIUM 1,000 UNIT/1ML VIAL IV ONE (08:52)
[2025-04-19] MEDS ORDERED: BUPIVACAINE HCL/PF 0.5% (5MG/ML) 10ML ONE (08:52)
[2025-04-19] MEDS ORDERED: THROMBIN (BOVINE) 5000 UNITS/VIAL TOP ONE ×4 (08:53→13:09)
[2025-04-19] MEDS ORDERED: ACETAMINOPHEN 1000MG/100ML 100 ML IV ONE (09:23)
[2025-04-19] MEDS ORDERED: ONDANSETRON HCL 4MG/2ML INJ IV PRN (09:30)
[2025-04-19] MEDS ORDERED: FENTANYL CITRATE/PF 50MCG/ML 2ML VIAL IV PRN (09:30)
[2025-04-19] MEDS ORDERED: CALCIUM CHLORIDE 1GM/10ML SYR IV ONE (10:26)
[2025-04-19] MEDS ORDERED: ALBUMIN HUMAN 12.5G/250ML (5%) IV ONE (10:48)
[2025-04-19] MEDS ORDERED: VANCOMYCIN HCL 1GM VIAL ONE (13:01)
[2025-04-19] MEDS ORDERED: ALBUMIN HUMAN 12.5GM/50ML (25%) IV ONE (14:17)
[2025-04-19] MEDS ORDERED: PROTAMINE SULFATE 10MG/ML VIAL 5ML IV ONE (15:10)
[2025-04-19] MEDS ORDERED: CEFAZOLIN SODIUM 1000MG/VIAL ONE (15:12)
[2025-04-19 16:59] LABS: HEMATOCRIT 24.2 % (36.0-48.0); HEMOGLOBIN 8.1 g/dL (12.0-16.0); MEAN CORPUSCULAR HGB CONC 33.4 g/dL (31.0-37.0); PLATELET 202 x1000/uL (130-400); RED BLOOD CELL COUNT 2.69 mill/uL (4.2-5.4); RED CELL DISTRIBUTION WIDTH 16.3 % (11.6-14.6); WHITE BLOOD COUNT 11.8 x1000/uL (4.5-11.0)
[2025-04-19 17:10] LABS: POTASSIUM 4.5 mEq/L (3.5-5.1)
[2025-04-19 17:12] LABS: CALCIUM 9.5 mg/dL (8.7-10.4)
[2025-04-20] VITALS (12 sets, daily range): BP systolic 90–118; BP diastolic 41–51; PULSE 50–95; RESP 15–20; TEMP 36.3–37; O2SAT 96–100
[2025-04-20 06:15] LABS: HEMATOCRIT 23.7 % (36.0-48.0); HEMOGLOBIN 7.9 g/dL (12.0-16.0); MEAN CORPUSCULAR HEMOGLOBIN 29.8 pg (28.0-32.0); MEAN CORPUSCULAR HGB CONC 33.3 g/dL (31.0-37.0); MEAN CORPUSCULAR VOLUME 89.7 fL (81.0-99.0); PLATELET 202 x1000/uL (130-400); RED BLOOD CELL COUNT 2.64 mill/uL (4.2-5.4); RED CELL DISTRIBUTION WIDTH 16.2 % (11.6-14.6)
[2025-04-20] MEDS ORDERED: HYDROCODONE/ACETAMINOPHEN 10/325MG TABLET PO PRN (06:30)
[2025-04-20 06:38] LABS: CALCIUM 9.2 mg/dL (8.7-10.4)
[2025-04-20 06:42] LABS: CREATININE 8.9 mg/dL (0.6-1.0)
[2025-04-20] MEDS ORDERED: NALOXONE HCL 0.4MG/ML VIAL IV PRN (06:45)
[2025-04-20] MEDS: PANTOPRAZOLE 40MG DR TABLET PO SCH (08:50)
[2025-04-20] MEDS: SODIUM CHLORIDE 0.9% 250 ML IV ONE (11:10)
[2025-04-20] MEDS: VANCOMYCIN 1G PREMIX 200 ML IV NR (23:12)
[2025-04-20] MEDS: MIDODRINE HCL 5MG TABLET PO SCH (23:16)
[2025-04-21] VITALS (7 sets, daily range): BP systolic 86–133; BP diastolic 22–76; PULSE 61–68; RESP 16–18; TEMP 35.8–37.1; O2SAT 95–100
[2025-04-21 06:41] LABS: HEMATOCRIT 21.6 % (36.0-48.0); HEMOGLOBIN 7.2 g/dL (12.0-16.0); MEAN CORPUSCULAR HEMOGLOBIN 29.9 pg (28.0-32.0); MEAN CORPUSCULAR HGB CONC 33.3 g/dL (31.0-37.0); MEAN CORPUSCULAR VOLUME 89.7 fL (81.0-99.0); PLATELET 194 x1000/uL (130-400); RED BLOOD CELL COUNT 2.41 mill/uL (4.2-5.4); WHITE BLOOD COUNT 9.4 x1000/uL (4.5-11.0)
[2025-04-22] VITALS: BP 108/49; PULSE 61; RESP 18; TEMP 36.4; O2SAT 98
[2025-04-22 04:00] VITALS: BP 110/56; PULSE 63; RESP 17; TEMP 36.4; O2SAT 99
[2025-04-22 06:42] LABS: POTASSIUM 4.7 mEq/L (3.5-5.1)
[2025-04-22 06:45] LABS: HEMATOCRIT. 21.9 % (36.0-48.0); HEMOGLOBIN. 7.4 g/dL (12.0-16.0); MEAN CORPUSCULAR HEMOGLOBIN 30.3 pg (28.0-32.0); MEAN CORPUSCULAR HGB CONC 33.7 g/dL (31.0-37.0); MEAN CORPUSCULAR VOLUME 89.9 fL (81.0-99.0); MEAN PLATELET VOLUME 8.5 fl (7.4-10.4); PLATELET 228 x1000/uL (130-400); RED BLOOD CELL COUNT 2.44 mill/uL (4.2-5.4); RED CELL DISTRIBUTION WIDTH 15.9 % (11.6-14.6); WHITE BLOOD COUNT 9.3 x1000/uL (4.5-11.0)
[2025-04-22 06:50] LABS: CREATININE 8.4 mg/dL (0.6-1.0)
[2025-04-22 07:41] LABS: DIFFERENTIAL COMMENT 1
[2025-04-22 08:00] VITALS: BP 111/49; PULSE 60; RESP 19; TEMP 36.5; O2SAT 100
[2025-04-22 12:00] VITALS: BP 131/91; PULSE 64; RESP 18; TEMP 36.5; O2SAT 94
[2025-04-22 12:33] LABS: PLATELET ESTIMATE NORMAL
[2025-04-22] MEDS ORDERED: TOPUD PO (12:47)
[2025-04-22 16:00] VITALS: BP 104/39; PULSE 61; RESP 19; TEMP 36.3; O2SAT 100
[2025-04-22 20:00] VITALS: BP 117/52; PULSE 59; RESP 20; TEMP 36.4; O2SAT 94
[2025-04-23] VITALS (11 sets, daily range): BP systolic 100–114; BP diastolic 44–66; PULSE 55–67; RESP 16–20; TEMP 36.3–36.44736; O2SAT 97–100
[2025-04-23 06:52] LABS: HEMATOCRIT. 22.3 % (36.0-48.0); HEMOGLOBIN. 7.4 g/dL (12.0-16.0); MEAN CORPUSCULAR HEMOGLOBIN 29.9 pg (28.0-32.0); MEAN CORPUSCULAR HGB CONC 33.2 g/dL (31.0-37.0); MEAN CORPUSCULAR VOLUME 90.2 fL (81.0-99.0); PLATELET 242 x1000/uL (130-400); RED BLOOD CELL COUNT 2.47 mill/uL (4.2-5.4); RED CELL DISTRIBUTION WIDTH 15.9 % (11.6-14.6); WHITE BLOOD COUNT 8.2 x1000/uL (4.5-11.0)
[2025-04-23 06:58] LABS: POTASSIUM 5.1 mEq/L (3.5-5.1)
[2025-04-23 07:00] LABS: CALCIUM 9.1 mg/dL (8.7-10.4)
[2025-04-23 07:10] LABS: CREATININE 9.9 mg/dL (0.6-1.0)
[2025-04-23 07:28] LABS: DIFFERENTIAL COMMENT 1
[2025-04-23] MEDS ORDERED: SULF1TAB48 MT (11:52)
[2025-04-23] MEDS: SULFAMETHOXAZOLE/TRIMETHOPRIM 800/160MG TABLET PO SCH (13:51)
[2025-04-23 16:39] LABS: ANISOCYTOSIS 1+; PLATELET ESTIMATE NORMAL
[2025-04-23] MEDS ORDERED: EPOETIN ALFA-EPBX 4,000 UNIT/ML VIAL SUBCUT SCH (21:00)
[2025-04-23] MEDS ORDERED: SULFAMETHOXAZOLE/TRIMETHOPRIM 400/80MG TAB PO SCH (21:00)
[2025-04-24] MEDS ORDERED: FAMOTIDINE 20MG TABLET PO SCH (09:00)
== END 2025-04-23 14:00 | disposition home or self-care (01) | DRG 252 ==
LOC: ER 15:13 → 5WST 18:50 → EDBEDREQSVC 18:51
PROVIDERS: ADMIT Internal Medicine; ATTEND Internal Medicine
PROC: 5A1D70Z Performance of Urinary Filtration, Intermittent, Less than 6 Hours Per Day (ICD-10-PCS; 2025-04-18)
PROC: 031 Upper Arteries, Bypass (ICD-10-PCS; principal; 2025-04-19)
PROC: 05PY0DZ Removal of Intraluminal Device from Upper Vein, Open Approach (ICD-10-PCS; 2025-04-19)
PROC: 05WY07Z Revision of Autologous Tissue Substitute in Upper Vein, Open Approach (ICD-10-PCS; 2025-04-19)
PROC: 05L80ZZ Occlusion of Left Axillary Vein, Open Approach (ICD-10-PCS; 2025-04-19)
PROC: 05B80ZZ Excision of Left Axillary Vein, Open Approach (ICD-10-PCS; 2025-04-19)
PROC: 03L80ZZ Occlusion of Left Brachial Artery, Open Approach (ICD-10-PCS; 2025-04-19)
PROC: 03WY07Z Revision of Autologous Tissue Substitute in Upper Artery, Open Approach (ICD-10-PCS; 2025-04-19)
PROC: 03B80ZZ Excision of Left Brachial Artery, Open Approach (ICD-10-PCS; 2025-04-19)
PROC: 03WY07Z Revision of Autologous Tissue Substitute in Upper Artery, Open Approach (ICD-10-PCS; 2025-04-19)
PROC: 05LA0ZZ Occlusion of Left Brachial Vein, Open Approach (ICD-10-PCS; 2025-04-19)
PROC: 03WY07Z Revision of Autologous Tissue Substitute in Upper Artery, Open Approach (ICD-10-PCS; 2025-04-19)
PROC: 5A1D70Z Performance of Urinary Filtration, Intermittent, Less than 6 Hours Per Day (ICD-10-PCS; 2025-04-20)
PROC: 5A1D70Z Performance of Urinary Filtration, Intermittent, Less than 6 Hours Per Day (ICD-10-PCS; 2025-04-23)
DX: T82.838A Hemorrhage due to vascular prosthetic devices, implants and grafts, initial encounter (principal); N18.6 End stage renal disease; I12.0 Hypertensive chronic kidney disease with stage 5 chronic kidney disease or end stage renal disease; N25.81 Secondary hyperparathyroidism of renal origin; T82.510A Breakdown (mechanical) of surgically created arteriovenous fistula, initial encounter; E11.22 Type 2 diabetes mellitus with diabetic chronic kidney disease; E78.5 Hyperlipidemia, unspecified; E87.6 Hypokalemia; Y83.8 Other surgical procedures as the cause of abnormal reaction of the patient, or of later complication, without mention of misadventure at the time of the procedure; D63.8 Anemia in other chronic diseases classified elsewhere; D50.0 Iron deficiency anemia secondary to blood loss (chronic); Z99.2 Dependence on renal dialysis; Y92.89 Other specified places as the place of occurrence of the external cause; Z90.710 Acquired absence of both cervix and uterus
CPT/HCPCS: 36415; 71250; 73200; 80048; 82962; 83036; 85025; 85027; 85347; 86705; 86709; 86850; 86900; 87070; 87075; 87077; 87186; 87340; 88304; 90935; 93005; 93971; 99285; A6449; J0665; J0690; J0885; J1644; J2003; J2720; J3370; J3490; J7030; J7050; P9041; P9047; C1768; J0131